=== PATIENT | male | born 1980 | race Caucasian/White ===

== ENCOUNTER 2017-09-28 07:39 | Emergency (ER) | payer SELFPAY ==
--- NOTE | 2017-09-28 08:38 | ER Document Report ---
HPI - HPI Patient complains to provider of: Sore throat, fever, congestion 3 days Onset: Last week Onset/Duration: Gradual Quality of pain: Achy Severity: Mild Pain Level: 1 Context: Daughter diagnosed with strep last week, patient states he has the same symptoms. Complains of sore throat, headache, fever and congestion Associated Symptoms: Fever, Headache, Sore throat Exacerbated by: Denies Relieved by: Denies Similar symptoms previously: Yes Recently seen / treated by doctor: No - ROS ROS below otherwise negative: Yes Systems Reviewed and Negative: Yes All other systems reviewed and negative - CONSTITUTIONAL Constitutional: REPORTS: Fever, Chills - EENT EENT: REPORTS: Sore Throat, Congestion - NEURO Neurology: REPORTS: Headache - CARDIOVASCULAR Cardiovascular: DENIES: Chest pain - RESPIRATORY Respiratory: REPORTS: Coughing. DENIES: Trouble Breathing - MUSCULOSKELETAL Musculoskeletal: Notes: Patient also complains of feeling achy - DERM Skin Color: Normal, [place] Skin Problems: None Past Medical History - General Information source: Patient - Social History Smoking Status: Current Every Day Smoker Cigarette use (# per day): Yes Frequency of alcohol use: None Drug Abuse: None Lives with: Family Family History: None, Reviewed & Not Pertinent Patient has suicidal ideation: No Patient has homicidal ideation: No Pulmonary Medical History: Reports: Hx Asthma Psychiatric Medical History: Reports: Hx Depression Surgical Hx: Negative - Immunizations Hx Diphtheria, Pertussis, Tetanus Vaccination: No Vertical Provider Document - CONSTITUTIONAL Agree With Documented VS: Yes Exam Limitations: No Limitations General Appearance: WD/WN, No Apparent Distress - INFECTION CONTROL TRAVEL OUTSIDE OF THE [place] IN LAST 30 DAYS: No - HEENT HEENT: Atraumatic, Normocephalic Notes: TMs dull, throat with moderate erythema. - NECK Neck: Lymphadenopathy-Left, Lymphadenopathy-Right - RESPIRATORY Respiratory: Breath Sounds Normal, No Respiratory Distress O2 Sat by Pulse Oximetry: 97 - CARDIOVASCULAR Cardiovascular: Regular Rate, Regular Rhythm - GI/ABDOMEN Gastrointestinal: Abdomen Soft - MUSCULOSKELETAL/EXTREMETIES Musculoskeletal/Extremeties: MAEW - NEURO Level of Consciousness: Awake, Alert, Appropriate - DERM Integumentary: Warm, Dry, No Rash Course - Vital Signs Vital signs: Temp Pulse Resp BP Pulse Ox 99.6 F 94 18 152/90 H 97 09/28/17 07:50 09/28/17 07:50 09/28/17 07:50 09/28/17 07:50 09/28/17 07:50 Discharge - Discharge Clinical Impression: Sore throat, Strep throat exposure, Congestion of upper airway Condition: Good Disposition: HOME, SELF-CARE Additional Instructions: Finish all antibiotics as prescribed Tylenol or Motrin as needed for body aches or fever Replace your toothbrush in 2 days Continue any [id number] cough/cold medications for symptom relief Push fluids Follow-up with your doctor or return if symptoms worsen Prescriptions: Amoxicillin 1 tab PO TID #30 tab
[2017-09-28 09:02] VITALS: BP 127/66
== END 2017-09-28 08:50 | disposition home or self-care (01) ==
LOC: ER 07:39
DX: J02.9 Acute pharyngitis, unspecified (principal); R59.0 Localized enlarged lymph nodes; Z20.818 Contact with and (suspected) exposure to other bacterial communicable diseases; R09.89 Other specified symptoms and signs involving the circulatory and respiratory systems; R51 Headache; R50.9 Fever, unspecified; R05 Cough; J45.909 Unspecified asthma, uncomplicated; F17.210 Nicotine dependence, cigarettes, uncomplicated
CPT/HCPCS: 99283